=== PATIENT | female | born 1990 | race Caucasian/White ===

== ENCOUNTER → 2018-09-22 | Outpatient (CLI) | payer BC | LOC: LAB.O 10:16 | PROVIDERS: ATTEND Family Medicine | DX: R19.7 Diarrhea, unspecified (principal); R10.816 Epigastric abdominal tenderness ==

== ENCOUNTER → 2018-09-28 | Outpatient (CLI) | payer BC ==
--- NOTE | 2018-09-28 14:16 | CT ---
EXAM DESCRIPTION: Abdomen /Pelvis w/o Contrast: Computed Tomography. CLINICAL HISTORY: CONSTIPATION COMPARISON: CT abdomen and pelvis 02/10/2014. TECHNIQUE: Spiral-axial scans 2.5 x 2.5 mm intervals through the abdomen and pelvis without oral or IV contrast. Coronal and sagittal 2.0 mm reconstructions. Total Exam DLP: 1369.77 mGy-cm. This exam was performed according to our departmental CT dose-optimization program which includes automated exposure control, adjustment of the mA and/or kV according to patient size and/or use of iterative reconstruction technique; to reduce radiation dose to as low as reasonably achievable (ALARA). FINDINGS: Lung bases and pleura: Negative. Liver, stomach, spleen, and adrenal glands: Long axis of the right hepatic lobe is 19.3 cm. AP axis of the spleen is 13.2 cm. Stable since the prior study. No focal lesions seen in either organ. Stomach distended by food. Adrenal glands are negative. Pancreas, Gallbladder, and Ducts: Surgical clips in the gallbladder fossa with no fluid. Uniform appearance of the pancreas. Common bile duct not well seen. Kidneys and Ureters: Unremarkable. Mesentery: Small lymph nodes approximately 1 cm or smaller scattered throughout. Central mesentery with minimal haziness. No focal fatty stranding fascial thickening no free air or ascites. Aorta: Negative. Small Bowel: Unremarkable. Terminal Ileum/Cecum: Normal caliber. Surgical clips on the inferior cecum. Appendix not seen. No fatty stranding. Colon: Diverticula on the descending colon and sigmoid. No complications. No significant amount of fecal matter or distention. No obstruction or air-fluid levels. Pelvic Organs: No free fluid. Spine and Bony Pelvis: Minimal spondylosis in the lower thoracic spine. Abdominal Wall/Back Soft Tissues: Minimal diastases at the umbilicus but no bowel hernia. IMPRESSION: 1. Lymph nodes in the lower mesentery with minimal haziness. This could indicate mesenteric adenitis. Similar appearance but less diffuse on the prior study. 2. No significant amount of colonic constipation. No colon obstruction. Diverticula descending and sigmoid colon but no evidence of complications. 3. Hepatomegaly and mild splenomegaly is stable since the prior study. Electronically signed by: Lukas Perez MD 09/28/2018 2:15 PM [employer]
== END ==
LOC: CT 13:01
PROVIDERS: ATTEND Family Medicine
DX: K59.01 Slow transit constipation (principal); R10.2 Pelvic and perineal pain; R10.13 Epigastric pain; R16.2 Hepatomegaly with splenomegaly, not elsewhere classified

== ENCOUNTER → 2019-02-20 | Outpatient (CLI) | payer BC | LOC: GMAE 10:38 | PROVIDERS: ATTEND Family Medicine | DX: Z00.00 Encounter for general adult medical examination without abnormal findings (principal); E53.8 Deficiency of other specified B group vitamins; E55.9 Vitamin D deficiency, unspecified ==

== ENCOUNTER → 2019-08-24 | Outpatient (CLI) | payer BC | LOC: GMAF 12:28 | PROVIDERS: ATTEND Nurse Practitioner Family | DX: N92.0 Excessive and frequent menstruation with regular cycle (principal) ==

== ENCOUNTER → 2020-05-10 | Outpatient (CLI) | payer OTHER | LOC: LAB.NP 11:46 | PROVIDERS: ATTEND Family Medicine | DX: R10.13 Epigastric pain (principal) ==

== ENCOUNTER → 2020-10-02 | Outpatient (CLI) | payer BC, OTHER | LOC: GMAE 16:31 | PROVIDERS: ATTEND Family Medicine | DX: J06.9 Acute upper respiratory infection, unspecified (principal); B34.2 Coronavirus infection, unspecified; R09.02 Hypoxemia; R71.8 Other abnormality of red blood cells ==